=== PATIENT | male | born 1935 | race Caucasian/White ===

== ENCOUNTER → 2020-06-20 10:50 | Outpatient (CLI) | payer MEDICARE, BC, SELFPAY ==
--- NOTE | ~2020-06-20 | XR_ITS ---
EXAMINATION: XR sacrum coccyx min 2V INDICATION: Pain after fall TECHNIQUE: Three views of the sacrum and coccyx are obtained. COMPARISON: None available FINDINGS: Bone alignment is normal. There is no fracture. Severe lower lumbar spondylosis is noted. T here are phleboliths of the pelvis. IMPRESSION: 1. No acute osseous abnormality. Reviewed, dictated and finalized at location A.
--- NOTE | ~2020-06-20 | XR_ITS ---
EXAMINATION: XR lumbar spine 2-3V DATE: 06/20/2020 11:54 INDICATION: Low back pain TECHNIQUE: Anteroposterior and lateral views of the lumbar spine, and cone-down lateral view of the l umbosacral junction were obtained. COMPARISON: 03/10/2012 FINDINGS: There is unchanged lumbar levocurvature. There is also severe loss of intervertebral disc s pace height throughout the lumbar spine. The vertebral body heights and alignment are maintained. Deg enerative osteophytes project from the anterior endplates of multiple vertebral bodies. 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 No fracture is identified. There is calcified atherosclerosis. IMPRESSION: 1. Moderate to severe lumbar spondylosis without acute findings or significant interval change. Reviewed, dictated and finalized at location A.
== END ==
PROVIDERS: PCP Family Medicine; Visit Provider Family Medicine
DX: M47.896 Other spondylosis, lumbar region (principal)
CPT/HCPCS: 72100; 72220

== ENCOUNTER → 2022-03-19 13:59 | Outpatient (CLI) | payer MEDICARE, SELFPAY ==
--- NOTE | ~2022-03-19 | MR_ITS ---
EXAMINATION: MR orbits face neck wo/w con DATE: 03/19/2022 14:59 INDICATION: Diplopia. TECHNIQUE: Magnetic resonance imaging (MRI) of the orbits was performed without and with 15 mL MultiH ance intravenous contrast. COMPARISON: Brain MRI 05/29/2017 FINDINGS: There is a small old infarct in left cerebellum. There are scattered areas of nonspecific i ncreased T2-weighted signal intensity in the cerebral white matter, which is within normal limits for the patient's age. There is no intracranial hemorrhage, acute infarction, or abnormal intracranial m ass lesion. The ventricles are normal in size. The mastoid air cells are normal. There is mild mucosa l thickening in the paranasal sinuses. There are likely changes of ocular lens replacement surgeries. The extraocular muscles are normal. The optic nerves are normal. There is no abnormal orbital mass. There is loss of the normal flow void in right internal carotid artery. IMPRESSION: 1. Old infarct in left cerebellum. 2. 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 Reviewed, dictated and finalized at location A. IMPRESSION: 1. Old infarct in left cerebellum. 2. 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
[2022-03-19 14:35] LABS: Estimated Glomerular Filt Rate 57
== END ==
PROVIDERS: PCP Family Medicine
DX: H53.2 Diplopia (principal); Z86.73 Personal history of transient ischemic attack (TIA), and cerebral infarction without residual deficits; I99.8 Other disorder of circulatory system
CPT/HCPCS: 70543; A9577